=== PATIENT | female | born 1950 | race Caucasian/White ===

== ENCOUNTER 2018-01-12 01:48 | Outpatient (CLI) | payer BC, SELFPAY ==
[2018-01-12 11:05] LABS: ALT 47 U/L (12-78); AST 29 U/L (15-37); Albumin 3.8 g/dL (3.4-5.0); Alkaline Phosphatase 90 U/L (46-116); Anion Gap 10.6 mmol/L (3-11); BUN 14 mg/dL (7-18); Bilirubin, Total 0.3 mg/dL (0.2-1.0); CO2 27.4 mmol/L (21.0-32.0); CREATININE 0.75 mg/dL (0.55-1.02); Chloride 103 mmol/L (98-107); Cholesterol 273 mg/dL (50-200); Glucose 96 mg/dL (70-100); HDL Cholesterol 49 mg/dL (40-60); LDL CHOLESTEROL 202 mg/dL (<100); Potassium 4.7 mmol/L (3.5-5.1); Sodium 141 mmol/L (136-145); TSH (W/Ref FT4) 3.37 uIU/mL (0.358-3.74); Total Protein 7.6 g/dL (6.4-8.2); Triglyceride 156 mg/dL (30-150)
== END 2018-01-12 02:08 ==
DX: E03.9 Hypothyroidism, unspecified (principal); Z00.00 Encounter for general adult medical examination without abnormal findings; E78.5 Hyperlipidemia, unspecified
CPT/HCPCS: 36415; 80053; 80061; 83721; 84443

== ENCOUNTER 2018-02-10 00:24 | Outpatient (CLI) | payer BC, SELFPAY ==
--- NOTE | 2018-02-10 13:11 | DI.MAMMO_ITS ---
SYMPTOM/DIAGNOSIS: SCREENING, Z12.31 MAMMOGRAMS: Mammograms were interpreted according to the usual protocol including computer analysis with CAD system, tomosynthesis and C view imaging. Comparison with prior examinations. Breast density A. No masses or microcalcifications are seen. There is nothing to suggest malignancy. IMPRESSION: Negative mammogram. Routine screening is recommended. Category I. MQSA ASSESSMENT OF FINDINGS: Negative. Category 1. Patient will receive a letter notifying them of these results. BI-RAD category A. The breasts are almost entirely fatty.
== END 2018-02-10 00:44 ==
DX: Z12.31 Encounter for screening mammogram for malignant neoplasm of breast (principal)
CPT/HCPCS: 77063; 77067

== ENCOUNTER 2018-04-13 01:04 | Outpatient (CLI) | payer BC, SELFPAY ==
--- NOTE | 2018-04-13 08:01 | DI.RAD_ITS ---
SYMPTOM/DIAGNOSIS: LT HIP PAIN, M25.552, LOW BACK PAIN, M54.5 LUMBAR SPINE: AP, lateral and bilateral oblique views. No priors for comparison. There are five lumbar type vertebral bodies. There is normal alignment. No spondylolysis or spondylolisthesis is seen. Disc heights are well maintained. There is a vacuum disc at L 2-3. There are endplate osteophytes throughout the lumbar spine. Degenerative changes of the facets are seen at L 4-5 and L 5-S 1. There are surgical clips seen in the right upper quadrant of the abdomen which may reflect prior cholecystectomy. No acute fractures or subluxations are seen. IMPRESSION: Moderate degenerative changes in the lumbar spine. LEFT HIP AND PELVIS: Two views. The left hip appears well maintained. The joint space is grossly unremarkable. The bones are intact and normally mineralized. The sacroiliac joints and symphysis pubis are intact. Arterial calcifications are present. IMPRESSION: Negative left hip.
[2018-04-13 10:29] LABS: Cholesterol 208 mg/dL (50-200); HDL Cholesterol 52 mg/dL (40-60); LDL CHOLESTEROL 133 mg/dL (<100); Triglyceride 143 mg/dL (30-150)
== END 2018-04-13 01:24 ==
PROVIDERS: PCP Family Medicine; Visit Provider Family Medicine
DX: M25.552 Pain in left hip (principal); M54.5 Low back pain; M47.816 Spondylosis without myelopathy or radiculopathy, lumbar region; K21.9 Gastro-esophageal reflux disease without esophagitis; I10 Essential (primary) hypertension; E78.5 Hyperlipidemia, unspecified; E03.9 Hypothyroidism, unspecified; Z68.35 Body mass index [BMI] 35.0-35.9, adult; R73.09 Other abnormal glucose
CPT/HCPCS: 36415; 80061; 83721; 72110; 73502; 83036

== ENCOUNTER 2018-05-02 06:11 | Day surgery (SDC) | payer BC, SELFPAY ==
[2018-05-02 06:17] VITALS: BP 138/85; PULSE 78; RESP 18; TEMP 36.1; O2SAT 98
[2018-05-02] MEDS: Lactated Ringers 1,000 ML 30 ML IV (06:58)
--- NOTE | 2018-05-02 07:44 | SKI_PTH ---
PATIENT: MARCIE MENDOZA LOC: [facility] U#:[id number] AGE/SX: 67/F ROOM: RE05/02/[address]: Jimmy Rea III : 1950 BED: DIS: 05/02/2018 SPEC #: [id number] RECD: 05/02/18 12:49 STATUS: PATRICIA ANTUNEZ #: [id number] PEÑA: 05/02/18 07:[address]: Jimmy Rea III DEPT: Surgical Specimen RECD BY: Jagruti Richards ENTERED: 05/02/18 12:51 SP TYPE: MAXWELL ASCENCIO DR: Joleen Calderon MD, DC Tissues: 1 - SKIN BIOPSY(SHAVE/PUNCH) Procedures: SKIN LEVEL 4 Comments: [id number]
--- NOTE | 2018-05-02 08:01 | W.PM.OP ---
Date of service: 05/02/18 Time of Service: 08:01 Operative Note DATE OF PROCEDURE: 05/02/18 PRE-OP DIAGNOSIS: right neck skin lesion POST-OP DIAGNOSIS: same PROCEDURE: excision of neck skin mass SURGEON: Jimmy Rea III ANESTHESIA: MAC ESTIMATED BLOOD LOSS: 2 COMPLICATIONS: None Patient was transported to: PACU Patient's condition: stable Findings: 1.5cm mass Procedure Description: Patient was seen preoperatively all risks benefits and alternatives discussed in detail and consent was obtained. Patient was moved to the operating room and placed in the operating table in supine fashion. Patient underwent MAC anesthesia with local infiltration to the area for excision. A thorough timeout was done with the OR staff present. Local was infiltrated into the area adequate anesthesia was achieved. Patient was positioned and prepped and draped in a sterile fashion. A 2 cm elliptical incision was made around the mass down the subcutaneous tissue Bovie cautery used for hemostasis. Patient had the specimen gudino short superior stitch and a long lateral stitch for pathology. The wound was copiously irrigated and had a layered closure with Vicryl and Dermabond used at the skin level. Patient tolerated procedure well was moved the PACU and then discharged home upon full recovery from anesthesia. A thorough debriefing was done with the entire or staff present.
--- NOTE | 2018-05-02 08:05 | W.PM.DSUDISC ---
Discharge Plan Disposition Patient Disposition: HOME Condition: Stable Discharge Details Reason For Visit: Right neck mass Attending Provider: Jimmy Rea III Primary Care Provider: Joleen Calderon Home Meds and New Rx's Prescriptions: Continued levothyroxine [Synthroid] 88 mcg tablet 88 mcg PO DAILY Qty: 90 RF: 4 nystatin 100,000 unit/gram powder 1 applic TP BID PRNRF: 0 multivitamin [One Daily] 1 EACH tablet 1 tab PO DAILY RF: 0 aspirin [Aspir-Low] 81 MG tablet,delayed release (DR/EC) 1 tab PO DAILY RF: 0 ranitidine HCl [Zantac Maximum Strength] 150 MG tablet 150 mg PO BID Qty: 180 RF: 4 lisinopril 20 mg tablet 20 mg PO BID Qty: 180 RF: 3 Discharge Instructions Referrals: Jimmy Rea III, DO [OSTEOPATHIC DOCTOR] - Activity:: Activity as Tolerated Diet:: As Tolerated Discharge Orders Discharge Orders: Discharge Order (Routine); Ordered 05/02/18 Ordered By: Jimmy Rea III DS: Diagnosis Discharge Diagnosis (1) Skin lesion: Status: Acute
[2018-05-02 08:28] VITALS: BP 117/63; PULSE 16; RESP 71; TEMP 36; O2SAT 98
== END 2018-05-02 08:43 | disposition home or self-care (01) ==
PROVIDERS: PCP Family Medicine; Visit Provider Surgery
PROC: (CPT 11422; principal; 2018-05-02 07:30)
DX: L82.1 Other seborrheic keratosis (principal)
CPT/HCPCS: 11422; 88305; J2250; J3010

== ENCOUNTER 2019-02-16 01:51 | Outpatient (CLI) | payer BC, SELFPAY ==
[2019-02-16 11:26] LABS: ALT 36 U/L (14-59); AST 20 U/L (15-37); Albumin 3.9 g/dL (3.4-5.0); Alkaline Phosphatase 86 U/L (46-116); Anion Gap 7.5 mmol/L (3-11); BUN 15 mg/dL (7-18); Bilirubin, Total 0.2 mg/dL (0.2-1.0); CO2 29.5 mmol/L (21.0-32.0); Calcium 9.3 mg/dL (8.5-10.1); Calculated LDL 162 mg/dL; Chloride 102 mmol/L (98-107); Cholesterol 243 mg/dL (50-200); Glucose 91 mg/dL (70-100); HDL Cholesterol 48 mg/dL (40-60); Sodium 139 mmol/L (136-145); TSH (W/Ref FT4) 2.34 uIU/mL (0.36-3.74); Total Protein 7.7 g/dL (6.4-8.2); Triglyceride 165 mg/dL (30-150)
== END 2019-02-16 02:11 ==
PROVIDERS: PCP Family Medicine; Visit Provider Family Medicine
DX: E78.5 Hyperlipidemia, unspecified (principal); I10 Essential (primary) hypertension; E03.9 Hypothyroidism, unspecified
CPT/HCPCS: 36415; 80053; 80061; 84443